=== PATIENT | female | born 1985 | race African-American/Black ===

== ENCOUNTER 2019-04-27 13:49 | Emergency (ER) | payer MEDICAID, OTHER ==
[~2019-04-27] VITALS: Ht 154.9 cm; Wt 62.0 kg
[2019-04-27] MEDS ORDERED: KETOROLAC 30MG/ML VIAL IV ONE (15:30)
[2019-04-27] MEDS ORDERED: IBUPROFEN 600MG TABLET PO ONE (15:45)
[2019-04-27 17:51] VITALS: BP 110/78
== END 2019-04-27 17:52 | disposition home or self-care (01) ==
LOC: ER 14:43
DX: M54.5 Low back pain (principal); V49.88XA Car occupant (driver) (passenger) injured in other specified transport accidents, initial encounter; Y93.89 Activity, other specified; Y92.89 Other specified places as the place of occurrence of the external cause; Y99.8 Other external cause status
CPT/HCPCS: 72100; 81025; 99283; J1885